=== PATIENT | female | born 1975 | race Caucasian/White ===

== ENCOUNTER → 2019-09-25 | Outpatient (CLI) | payer OTHER ==
--- NOTE | 2019-09-26 07:59 | US ---
EXAMINATION TYPE: US groin RT DATE OF EXAM: 09/25/2019 COMPARISON: Targeted ultrasound of the left groin from the same date. CLINICAL HISTORY: K40 Inguinal Hernia. Soft tissue mass, r/o hernia. Sensitivity/pain bilateral groin x 3 weeks. TECHNIQUE/FINDINGS: Targeted grayscale and color imaging was performed of the right groin in the area of concern. Exam somewhat limited. Scanned area of concern. Hypoechoic area seen near vessels measurin.2 x 0.9 x 0.5 cm. Complex are a seen at area of concern measurin.4 x 1.3 x 0.5 cm. No discrete inguinal hernia is seen with the utilization of Valsalva maneuver. IMPRESSION: 1. No discrete evidence of inguinal hernia with and without Valsalva on real-time imaging. 2. Two hypoechoic lesions in the area of concern within the right superficial inguinal region. These do not have a typical appearance of lymph nodes that could represent lymph nodes. Given that these ar e indeterminate masses CT pelvis w con is recommended for further evaluation. Valsalva maneuver could be utilized on scanning to further evaluate for hernia.
--- NOTE | 2019-09-26 08:00 | US ---
EXAMINATION TYPE: US groin LT DATE OF EXAM: 09/25/2019 COMPARISON: NONE CLINICAL HISTORY: K40 Inguinal Hernia. Soft tissue mass, r/o hernia. Sensitivity/pain bilateral groin x 3 weeks. TECHNIQUE/IMPRESSION: Targeted grayscale and color ultrasound was performed in the area concern in th e left inguinal region with and without Valsalva maneuver. Exam somewhat limited. Scanned area of concern. No obvious abnormalities seen at this time. No cystic or solid mass. No sono graphic evidence of hernia on the examination. IMPRESSION: No sonographic evidence of hernia during the examination.
== END | disposition home or self-care (01) ==
LOC: RADUSMAIN 17:53
PROVIDERS: ATTEND Obstetrics & Gynecology Obstetrics
DX: K46.9 Unspecified abdominal hernia without obstruction or gangrene (principal); M79.89 Other specified soft tissue disorders

== ENCOUNTER 2019-10-04 09:46 | Emergency (ER) | payer OTHER ==
[2019-10-04 10:06] VITALS: RESP 18
[2019-10-04 11:44] LABS: Appearance,Urine Clear (Clear); Bilirubin,Urine Negative (Negative); Blood,Urine Negative (Negative); Color,Urine Yellow; Glucose,Urine (UA) Negative (Negative); Ketones,Urine Negative (Negative); Leukocyte Esterase,Urine Negative (Negative); Nitrite,Urine Negative (Negative); Protein,Urine Negative (Negative); Specific Gravity,Urine 1.006 (1.001-1.035); Urobilinogen,Urine <2.0 mg/dL (<2.0)
[2019-10-04 11:46] LABS: Basophils % (A) 1 %; Eosinophils # (A) 0.2 k/uL (0-0.7); Eosinophils % (A) 4 %; HCT 38.9 % (34.0-46.0); HGB 12.3 gm/dL (11.4-16.0); Lymphocytes # (A) 1.1 k/uL (1.0-4.8); Lymphocytes % (A) 22 %; MCH 29.4 pg (25.0-35.0); MCHC 31.8 g/dL (31.0-37.0); MCV 92.4 fL (80.0-100.0); Mean Platelet Volume 6.6; Monocytes # (A) 0.4 k/uL (0-1.0); Monocytes % (A) 7 %; Neutrophils # (A) 3.2 k/uL (1.3-7.7); Neutrophils % (A) 63 %; Platelet Count 250 k/uL (150-450); RBC 4.21 m/uL (3.80-5.40); RDW 12.1 % (11.5-15.5); WBC 5.1 k/uL (3.8-10.6)
--- NOTE | 2019-10-04 12:02 | ED ---
Abdominal Pain HPI - General Chief Complaint: Abdominal Pain Stated Complaint: mass in abdomen/calf numbness Time Seen by Provider: 10/04/19 10:08 Source: patient Mode of arrival: ambulatory Limitations: no limitations - History of Present Illness Initial Comments: Patient is 44-year-old female with history of endometriosis presenting to emergency Department with chief complaint of abdominal mass. Patient reports she has noticed an abdominal mass in the right inguinal region that was examined by her web operations manager. She states an abdominal ultrasound was ordered and it showed an atypical mass in the patient was given a prescription for a CT of abdo men and pelvis. She states that is taking forever for her to obtain a CT. Patient reports over the 2 days the mass is increased in size in the right inguinal region. She reports it "feels off" especially when she is walking. Patient also reports she has noticed some numbness along the posterior aspect of the left lower extremity and occasional on the right lower extremity. Although, patient is not currently not experiencing these symptoms. Patient reports the symptoms have been ongoing for the past several months. Patient denies any abdominal pain, nausea vomiting or diarrhea. Patient denies any urinary or vaginal symptoms. Patient denies any night sweats fevers or chills. Patient denies recent unexplained weight loss. - Related Data Allergies Allergy/AdvReac Type Severity Reaction Status Date / Time peanut Allergy Anaphylaxis Verified 10/04/19 10:01 Review of Systems ROS Statement: Those systems with pertinent positive or pertinent negative responses have been documented in the HPI. ROS Other: All systems not noted in ROS Statement are negative. Past Medical History Past Medical History: No Reported History Additional Past Medical History / Comment(s): endometriosis History of Any Multi-Drug Resistant Organisms: None Reported Past Surgical History: Breast Surgery, Section Additional Past Surgical History / Comment(s): c section x 3 Past Psychological History: No Psychological Hx Reported Smoking Status: Former smoker Past Alcohol Use History: Rare Past Drug Use History: None Reported General Exam Limitations: no limitations General appearance: alert, in no apparent distress Head exam: Present: atraumatic, normocephalic, normal inspection Eye exam: Present: normal appearance Pupils: Present: normal accommodation ENT exam: Present: normal exam, mucous membranes moist Neck exam: Present: normal inspection, full ROM. Absent: lymphadenopathy Respiratory exam: Present: normal lung sounds bilaterally Cardiovascular Exam: Present: regular rate, normal rhythm, normal heart sounds GI/Abdominal exam: Present: soft, other (Right inguinal lymph nodes. No verbal mass measuring approximately). Absent: distended, tenderness Extremities exam: Present: normal inspection, full ROM Back exam: Present: normal inspection, full ROM. Absent: CVA tenderness (R), CVA tenderness (L) Course Vital Signs 10/04/19 10/04/19 10:01 13:15 Temperature 98 F 98.4 F Pulse Rate 72 65 Respiratory 18 18 Rate Blood Pressure 119/59 105/64 O2 Sat by Pulse 99 98 Oximetry Medical Decision Making - Medical Decision Making Patient is a 44-year-old female with history of endometriosis presenting to emergency Department with a chief complaint of abdominal mass. Patient recently had an abdominal ultrasound on the angle region which is showing enlarged writing on a lymph nodes and another atypical mass in the region as well. Patient states that she was not able to have a CT obtain a time and that the mass in the right inguinal region is "sliding down". Physical examination is in dicative of right inguinal lymph nodes with a soft tissue palpable mass that does not appear to be a hernia. Patient is not having any other symptoms. CT of the abdomen showing inguinal lymph nodes on the right side. Ovarian cyst is also noted on the left side. Patient advised to follow back with primary care. Strict return parameters were thoroughly discussed the patient was understanding and agreeable. Case discussed with physician. - Lab Data Result diagrams: 10/04/19 10:30 10/04/19 10:30 Lab Results 10/04/19 10/04/19 10/04/19 Range/Units 10:30 10:30 10:30 WBC 5.1 (3.8-10.6) k/uL RBC 4.21 (3.80-5.40) m/uL Hgb 12.3 (11.4-16.0) gm/dL Hct 38.9 (34.0-46.0) % MCV 92.4 (80.0-100.0) fL MCH 29.4 (25.0-35.0) pg MCHC 31.8 (31.0-37.0) g/dL RDW 12.1 (11.5-15.5) % Plt Count 250 (150-450) k/uL Neutrophils % 63 % Lymphocytes % 22 % Monocytes % 7 % Eosinophils % 4 % Basophils % 1 % Neutrophils # 3.2 (1.3-7.7) k/uL Lymphocytes # 1.1 (1.0-4.8) k/uL Monocytes # 0.4 (0-1.0) k/uL Eosinophils # 0.2 (0-0.7) k/uL Basophils # 0.0 (0-0.2) k/uL Sodium 141 (137-145) mmol/L Potassium 4.0 (3.5-5.1) mmol/L Chloride 109 H (98-107) mmol/L Carbon Dioxide 25 (22-30) mmol/L Anion Gap 7 mmol/L BUN 9 (7-17) mg/dL Creatinine 0.82 (0.52-1.04) mg/dL Est GFR (CKD-EPI)AfAm >90 (>60 ml/min/1.73 sqM) Est GFR (CKD-EPI)NonAf 87 (>60 ml/min/1.73 sqM) Glucose 80 (74-99) mg/dL Calcium 8.8 (8.4-10.2) mg/dL Total Bilirubin 0.3 (0.2-1.3) mg/dL AST 21 (14-36) U/L ALT 18 (9-52) U/L Alkaline Phosphatase 48 (38-126) U/L Total Protein 6.5 (6.3-8.2) g/dL Albumin 3.8 (3.5-5.0) g/dL Urine Color Urine Appearance (Clear) Urine pH (5.0-8.0) Ur Specific [place] (1.001-1.035) Urine Protein (Negative) Urine Glucose (UA) (Negative) Urine Ketones (Negative) Urine Blood (Negative) Urine Nitrite (Negative) Urine Bilirubin (Negative) Urine Urobilinogen (<2.0) mg/dL Ur Leukocyte Esterase (Negative) Urine HCG, Qual Not Detected (Not Detectd) 10/04/19 Range/Units 10:30 WBC (3.8-10.6) k/uL RBC (3.80-5.40) m/uL Hgb (11.4-16.0) gm/dL Hct (34.0-46.0) % MCV (80.0-100.0) fL MCH (25.0-35.0) pg MCHC (31.0-37.0) g/dL RDW (11.5-15.5) % Plt Count (150-450) k/uL Neutrophils % % Lymphocytes % % Monocytes % % Eosinophils % % Basophils % % Neutrophils # (1.3-7.7) k/uL Lymphocytes # (1.0-4.8) k/uL Monocytes # (0-1.0) k/uL Eosinophils # (0-0.7) k/uL Basophils # (0-0.2) k/uL Sodium (137-145) mmol/L Potassium (3.5-5.1) mmol/L Chloride (98-107) mmol/L Carbon Dioxide (22-30) mmol/L Anion Gap mmol/L BUN (7-17) mg/dL Creatinine (0.52-1.04) mg/dL Est GFR (CKD-EPI)AfAm (>60 ml/min/1.73 sqM) Est GFR (CKD-EPI)NonAf (>60 ml/min/1.73 sqM) Glucose (74-99) mg/dL Calcium (8.4-10.2) mg/dL Total Bilirubin (0.2-1.3) mg/dL AST (14-36) U/L ALT (9-52) U/L Alkaline Phosphatase (38-126) U/L Total Protein (6.3-8.2) g/dL Albumin (3.5-5.0) g/dL Urine Color Yellow Urine Appearance Clear (Clear) Urine pH 6.0 (5.0-8.0) Ur Specific [place] 1.006 (1.001-1.035) Urine Protein Negative (Negative) Urine Glucose (UA) Negative (Negative) Urine Ketones Negative (Negative) Urine Blood Negative (Negative) Urine Nitrite Negative (Negative) Urine Bilirubin Negative (Negative) Urine Urobilinogen <2.0 (<2.0) mg/dL Ur Leukocyte Esterase Negative (Negative) Urine HCG, Qual (Not Detectd) Disposition Clinical Impression: Ovarian cyst, Lymph nodes enlarged Disposition: HOME SELF-CARE Condition: Stable Instructions (If sedation given, give patient instructions): Lymphadenopathy (ED) Additional Instructions: Please follow with her primary care. Please return to emergency department if symptoms worsen. Is patient prescribed a controlled substance at d/c from ED?: No Referrals: Kashif Vaughn MD [Primary Care Provider] - 1-2 days Time of Disposition: 12:56
[2019-10-04 12:22] LABS: ALT 18 U/L (9-52); AST 21 U/L (14-36); African American GFR (CKD) >90 (>60 ml/min/1.73 sqM); Albumin 3.8 g/dL (3.5-5.0); Alkaline Phosphatase 48 U/L (38-126); Anion Gap 7 mmol/L; Blood Urea Nitrogen 9 mg/dL (7-17); Calcium 8.8 mg/dL (8.4-10.2); Carbon Dioxide 25 mmol/L (22-30); Chloride 109 mmol/L (98-107); Glucose 80 mg/dL (74-99); Sodium 141 mmol/L (137-145); Total Bilirubin 0.3 mg/dL (0.2-1.3); Total Protein 6.5 g/dL (6.3-8.2)
--- NOTE | 2019-10-04 12:49 | CT ---
EXAMINATION TYPE: CT abdomen pelvis w con DATE OF EXAM: 10/04/2019 COMPARISON: None HISTORY: Right inguinal mass CT DLP: 513.2 mGycm CONTRAST: CT scan of the abdomen and pelvis is performed without Oral Contrast and with IV Contrast, patient in jected with 100 mL of Isovue 300. FINDINGS: LUNG BASES-: No visible nodule. No infiltrate. LIVER/GB: No calcified gallstones. No space occupying hepatic lesion. Biliary tree is of normal ca liber. PANCREAS: No inflammation. No distinct mass. SPLEEN: No splenic enlargement. No lesion seen. ADRENALS: No nodule. No thickening. KIDNEYS/BLADDER: No hydronephrosis. No nephrolithiasis. No distinct renal mass. Urinary bladder g rossly unremarkable. BOWEL: Normal appendix. Normal bowel caliber. No inflammation. GENITAL ORGANS: Prominent vasculature surrounding the uterus may reflect periuterine varices. Left o varian cyst measuring 1.3 cm. LYMPH NODES: No greater than 1cm abdominal or pelvic lymph nodes are appreciated. AORTA: No significant abnormality. OSSEOUS STRUCTURES: No significant abnormality is seen. OTHER: 2 small right inguinal lymph nodes identified measuring up to 7 mm. IMPRESSION: 1. Prominent vasculature surrounding the uterus may reflect periuterine varices. Left ovarian cyst m easuring 1.3 cm. 2. 2 small right inguinal lymph nodes identified measuring up to 7 mm.
[2019-10-04 13:15] VITALS: BP 105/64; PULSE 65; TEMP 98.4
== END 2019-10-04 13:15 | disposition home or self-care (01) ==
LOC: EC 09:46
DX: N83.202 Unspecified ovarian cyst, left side (principal); R59.0 Localized enlarged lymph nodes; Z87.891 Personal history of nicotine dependence; Z91.010 Allergy to peanuts; Z87.42 Personal history of other diseases of the female genital tract
CPT/HCPCS: 36415; 80053; 85025; 81003; 81025; 74177; 99284; Q9967

== ENCOUNTER 2020-07-09 10:42 | Emergency (ER) | payer OTHER ==
[2020-07-09 10:48] VITALS: RESP 18
[2020-07-09] MEDS ORDERED: SODIUM CHLORIDE 0.9% 1,000 ML IV ONE (11:15)
--- NOTE | 2020-07-09 11:23 | ED ---
General Adult HPI - General Chief complaint: Neuro Symptoms/Deficit Stated complaint: Numbness Time Seen by Provider: 07/09/20 10:45 Source: patient, RN notes reviewed, old records reviewed Mode of arrival: ambulatory Limitations: no limitations - History of Present Illness Initial comments: This is a 45-year-old female presents emergency department stating that for at least 2 weeks now she has had tightness on both sides of her face and the tingling sensation. Patient also complains of tingling in both arms and tightness in both arms. Patient also complains of tingling in both legs below the knee and tightness in both legs. Patient states she's not weaker she is not known she can feel everything normally. Patient states she also has experienced visual change but she states it's not blurry it's not double vision she just feels like she is not seeing things away she used to. Patient denies any fever chills per patient denies any headache. Patient denies any focal deficit. Patient denies any chest pain palpitations difficulty breathing shortness of breath. Patient denies abdominal pain. Patient states she has a very poor diet eats a lot of coming appears. 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 Patient denies any weight loss or weight gain - Related Data Allergies Allergy/AdvReac Type Severity Reaction Status Date / Time peanut Allergy Anaphylaxis Verified 07/09/20 10:43 Review of Systems ROS Statement: Those systems with pertinent positive or pertinent negative responses have been documented in the HPI. ROS Other: All systems not noted in ROS Statement are negative. Past Medical History Past Medical History: No Reported History Additional Past Medical History / Comment(s): endometriosis History of Any Multi-Drug Resistant Organisms: None Reported Past Surgical History: Breast Surgery, Section Additional Past Surgical History / Comment(s): c section x 3 Past Psychological History: No Psychological Hx Reported Smoking Status: Never smoker Past Alcohol Use History: Rare Past Drug Use History: None Reported General Exam - General Exam Comments Initial Comments: GENERAL: Patient is well-developed and well-nourished. Patient is nontoxic and well- hydrated and is in no acute distress. ENT: Neck is soft and supple. No significant lymphadenopathy is noted. Oropharynx is clear. Moist mucous membranes. Neck has full range of motion without eliciting any pain. EYES: The sclera were anicteric and conjunctiva were pink and moist. Extraocular movements were intact and pupils were equal round and reactive to light. Eyelids were unremarkable. PULMONARY: Unlabored respirations. Good breath sounds bilaterally. No audible rales rhonchi or wheezing was noted. CARDIOVASCULAR: There is a regular rate and rhythm without any murmurs gallops or rubs. ABDOMEN: Soft and nontender with normal bowel sounds. No palpable organomegaly was noted. There is no palpable pulsatile mass. SKIN: Skin is clear with no lesions or rashes and otherwise unremarkable. NEUROLOGIC: Patient is alert and oriented x3. Cranial nerves II through XII are grossly intact. Motor and sensory are also intact. Normal speech, volume and content. Symmetrical smile. MUSCULOSKELETAL: Normal extremities with adequate strength and full range of motion. No lower extremity swelling or edema. No calf tenderness. LYMPHATICS: No significant lymphadenopathy is noted PSYCHIATRIC: Normal psychiatric evaluation. Limitations: no limitations Course Vital Signs 07/09/20 07/09/20 07/09/20 10:43 11:30 11:32 Temperature 98.2 F Pulse Rate 63 Pulse Rate [ 57 L 53 L Pulse Oximetery ] Respiratory 18 18 18 Rate Blood Pressure 90/62 Blood Pressure 105/71 [Left Arm Sitting] Blood Pressure [Left Arm Standing] Blood Pressure 86/56 [Left Arm Supine] O2 Sat by Pulse 97 Oximetry 07/09/20 07/09/20 11:34 12:14 Temperature Pulse Rate 50 L Pulse Rate [ 57 L Pulse Oximetery ] Respiratory 18 18 Rate Blood Pressure 96/55 Blood Pressure [Left Arm Sitting] Blood Pressure 102/69 [Left Arm Standing] Blood Pressure [Left Arm Supine] O2 Sat by Pulse 98 Oximetry Medical Decision Making - Medical Decision Making Patient's blood sugar was little bit low but will repeat in the room it was 108. Patient did drink some orange juice and had a sandwich. Patient had no objective findings and told me that her vision was blurry or she wasn't having double vision but she didn't feel like it was normal. Patient stated she would follow-up with Dr. Dr. Vaughn and possibly an stogy maker. - Lab Data Result diagrams: 07/09/20 11:20 07/09/20 11:20 Lab Results 07/09/20 07/09/20 07/09/20 Range/Units 11:20 11:20 12:25 WBC 5.1 (3.8-10.6) k/uL RBC 4.45 (3.80-5.40) m/uL Hgb 13.1 (11.4-16.0) gm/dL Hct 40.2 (34.0-46.0) % MCV 90.4 (80.0-100.0) fL MCH 29.4 (25.0-35.0) pg MCHC 32.6 (31.0-37.0) g/dL RDW 12.4 (11.5-15.5) % Plt Count 282 (150-450) k/uL Neutrophils % 65 % Lymphocytes % 24 % Monocytes % 7 % Eosinophils % 3 % Basophils % 1 % Neutrophils # 3.3 (1.3-7.7) k/uL Lymphocytes # 1.2 (1.0-4.8) k/uL Monocytes # 0.3 (0-1.0) k/uL Eosinophils # 0.1 (0-0.7) k/uL Basophils # 0.0 (0-0.2) k/uL Sodium 139 (137-145) mmol/L Potassium 3.9 (3.5-5.1) mmol/L Chloride 106 (98-107) mmol/L Carbon Dioxide 26 (22-30) mmol/L Anion Gap 7 mmol/L BUN 9 (7-17) mg/dL Creatinine 0.83 (0.52-1.04) mg/dL Est GFR (CKD-EPI)AfAm >90 (>60 ml/min/1.73 sqM) Est GFR (CKD-EPI)NonAf 86 (>60 ml/min/1.73 sqM) Glucose 62 L (74-99) mg/dL POC Glucose (mg/dL) 108 H (75-99) mg/dL POC Glu Cloud Engineer ID Carrie Kumar Calcium 9.6 (8.4-10.2) mg/dL Magnesium 2.1 (1.6-2.3) mg/dL Total Bilirubin 0.4 (0.2-1.3) mg/dL AST 21 (14-36) U/L ALT 13 (4-34) U/L Alkaline Phosphatase 47 (38-126) U/L Creatine Kinase 76 (30-135) U/L Total Protein 7.2 (6.3-8.2) g/dL Albumin 4.6 (3.5-5.0) g/dL Disposition Clinical Impression: Paresthesias Disposition: HOME SELF-CARE Condition: Good Instructions (If sedation given, give patient instructions): Paresthesia (ED) Is patient prescribed a controlled substance at d/c from ED?: No Referrals: None,Stated [REFERRING] - 1-2 days Time of Disposition: 12:40
[2020-07-09 11:52] LABS: Basophils % (A) 1 %; Eosinophils # (A) 0.1 k/uL (0-0.7); Eosinophils % (A) 3 %; HCT 40.2 % (34.0-46.0); HGB 13.1 gm/dL (11.4-16.0); Lymphocytes # (A) 1.2 k/uL (1.0-4.8); Lymphocytes % (A) 24 %; MCH 29.4 pg (25.0-35.0); MCHC 32.6 g/dL (31.0-37.0); MCV 90.4 fL (80.0-100.0); Mean Platelet Volume 7.3; Monocytes # (A) 0.3 k/uL (0-1.0); Monocytes % (A) 7 %; Neutrophils # (A) 3.3 k/uL (1.3-7.7); Neutrophils % (A) 65 %; Platelet Count 282 k/uL (150-450); RBC 4.45 m/uL (3.80-5.40); RDW 12.4 % (11.5-15.5); WBC 5.1 k/uL (3.8-10.6)
[2020-07-09 11:59] LABS: ALT 13 U/L (4-34); AST 21 U/L (14-36); African American GFR (CKD) >90 (>60 ml/min/1.73 sqM); Albumin 4.6 g/dL (3.5-5.0); Alkaline Phosphatase 47 U/L (38-126); Anion Gap 7 mmol/L; Blood Urea Nitrogen 9 mg/dL (7-17); Calcium 9.6 mg/dL (8.4-10.2); Carbon Dioxide 26 mmol/L (22-30); Chloride 106 mmol/L (98-107); Creatine Kinase 76 U/L (30-135); Glucose 62 mg/dL (74-99); Magnesium 2.1 mg/dL (1.6-2.3); Non-African American GFR(CKD) 86 (>60 ml/min/1.73 sqM); Potassium 3.9 mmol/L (3.5-5.1); Sodium 139 mmol/L (137-145); Total Bilirubin 0.4 mg/dL (0.2-1.3); Total Protein 7.2 g/dL (6.3-8.2)
[2020-07-09 12:27] LABS: Glucose,Whole Blood 108 mg/dL (75-99)
[2020-07-09 13:12] VITALS: BP 94/67; PULSE 66; TEMP 97.9
== END 2020-07-09 13:11 | disposition home or self-care (01) ==
LOC: EC 10:42
DX: R20.2 Paresthesia of skin (principal); Z91.010 Allergy to peanuts; R20.0 Anesthesia of skin
CPT/HCPCS: 36415; 80053; 82550; 83735; 85025; 96360; 99284

== ENCOUNTER → 2021-12-08 | Outpatient (CLI) | payer OTHER ==
--- NOTE | 2021-12-08 12:01 | MM ---
Reason for exam: clinical finding. Baseline mammogram. History: Family history of breast cancer in maternal grandmother. Implant Removal of both breasts. Took hormonal contraceptives for 5 years. Physical Findings: Nurse Summary: 1cm nodule in the left breast at 1-2 o'clock (nurse henry). [facility] Diagnostic Mammo w CAD SKYLER Bilateral CC and MLO view(s) were taken. Spot compression CC and spot compression MLO view(s) were taken of the left breast. The breast tissue is extremely dense which could obscure a lesion on mammography. Finding: There is a spiculated oval, irregular mass located 3 cm from the nipple in the 7 o'clock position. There is no discrete abnormality including area of concern left upper outer quadrant palpable. These results were verbally communicated with the patient and result sheet given to the patient on 12/08/21. ASSESSMENT: Incomplete: need additional imaging evaluation, BI-RAD 0 RECOMMENDATION: Ultrasound of the left breast.
--- NOTE | 2021-12-08 12:03 | USB ---
Reason for exam: additional evaluation requested from abnormal screening. History: Family history of breast cancer in maternal grandmother. Implant Removal of both breasts. Took hormonal contraceptives for 5 years. US Breast Limited LT Left limited breast ultrasound including focal area of concern, retroareolar and axilla demonstrates a 0.3 x 0.6 x 0.4cm cystic lesion at 1 o'clock and a 0.5 x 0.6 x 0.3cm cystic lesion at 2 o'clock. These results were verbally communicated with the patient and result sheet given to the patient on 12/08/21. ASSESSMENT: Benign, BI-RAD 2 RECOMMENDATION: Routine screening mammogram of both breasts in 1 year. Manage on a clinical basis with regard to palpable.
== END ==
LOC: RADMAMWWP 10:18
PROVIDERS: ATTEND Family Medicine
DX: N64.4 Mastodynia (principal)
CPT/HCPCS: 77066

== ENCOUNTER 2023-06-20 11:57 | Emergency (ER) | payer OTHER ==
[2023-06-20 13:18] VITALS: TEMP 98.3
[2023-06-20 13:34] LABS: Appearance,Urine Clear (Clear); Bilirubin,Urine Negative (Negative); Blood,Urine Negative (Negative); Color,Urine Colorless; Glucose,Urine (UA) Negative (Negative); Ketones,Urine Negative (Negative); Leukocyte Esterase,Urine Negative (Negative); Nitrite,Urine Negative (Negative); PH, Urine 7.5 (5.0-8.0); Protein,Urine Negative (Negative); Specific Gravity,Urine 1.004 (1.001-1.035); Urobilinogen,Urine <2.0 mg/dL (<2.0)
[2023-06-20] MEDS ORDERED: SODIUM CHLORIDE 0.9% 1,000 ML IV STA (14:54)
--- NOTE | 2023-06-20 14:59 | ED ---
General Adult HPI - General Chief complaint: Abdominal Pain Stated complaint: abd pain Time Seen by Provider: 06/20/23 14:09 Source: patient, RN notes reviewed Mode of arrival: ambulatory Limitations: no limitations - History of Present Illness Initial comments: 48-year-old female resents to the emergency department chief complaint of abdominal bloating that has been going on for the past month but she noticed worse on Monday. She reports associated nausea without vomiting. Last bowel movement was this morning. She reports that she is able to pass gas without issue. She also reports associated leg tingling without numbness or pain. She reports no trauma or injury. Denies fever, chills. - Related Data Allergies Allergy/AdvReac Type Severity Reaction Status Date / Time peanut Allergy Anaphylaxis Verified 06/20/23 13:18 Review of Systems ROS Statement: Those systems with pertinent positive or pertinent negative responses have been documented in the HPI. ROS Other: All systems not noted in ROS Statement are negative. Past Medical History Past Medical History: No Reported History Additional Past Medical History / Comment(s): endometriosis History of Any Multi-Drug Resistant Organisms: None Reported Past Surgical History: Breast Surgery, Section Additional Past Surgical History / Comment(s): c section x 3 Past Psychological History: No Psychological Hx Reported Smoking Status: Never smoker Past Alcohol Use History: Rare Past Drug Use History: None Reported General Exam Limitations: no limitations General appearance: alert, in no apparent distress Head exam: Present: atraumatic, normocephalic, normal inspection Eye exam: Present: normal appearance ENT exam: Present: normal exam, mucous membranes moist Neck exam: Present: normal inspection. Absent: tenderness, meningismus, lymphadenopathy Respiratory exam: Present: normal lung sounds bilaterally. Absent: respiratory distress, wheezes, rales, rhonchi, stridor Cardiovascular Exam: Present: regular rate, normal rhythm, normal heart sounds. Absent: systolic murmur, diastolic murmur, rubs, gallop, clicks GI/Abdominal exam: Present: soft, distended, hyperactive bowel sounds Extremities exam: Present: normal inspection, full ROM, normal capillary refill, other (DP and PT pulses 2+). Absent: tenderness, pedal edema, joint swelling, calf tenderness Back exam: Present: normal inspection Neurological exam: Present: alert, oriented X3 Psychiatric exam: Present: normal affect, normal mood Skin exam: Present: warm, dry, intact, normal color. Absent: rash Course Vital Signs 06/20/23 06/20/23 13:15 16:00 Temperature 98.3 F Pulse Rate 72 65 Respiratory 18 17 Rate Blood Pressure 131/76 112/55 O2 Sat by Pulse 100 99 Oximetry Medical Decision Making - Medical Decision Making Was pt. sent in by a medical professional or institution (, PTA, LOAD MIXER, urgent care, hospital, or retirement...) When possible be specific @ -No Did you speak to anyone other than the patient for history (EMS, parent, family, police, friend...)? What history was obtained from this source @ -No Did you review nursing and triage notes (agree or disagree)? Why? @ -I reviewed and agree with nursing and triage notes Were old charts reviewed (outside hosp., previous admission, EMS record, old EKG, old radiological studies, urgent care reports/EKG's, retirement records)? Report findings @ -No old charts were reviewed Differential Diagnosis (chest pain, altered mental status, abdominal pain women, abdominal pain men, vaginal bleeding, weakness, fever, dyspnea, syncope, headache, dizziness, GI bleed, back pain, seizure, CVA, palpatations, mental health, musculoskeletal)? @ -Differential Abdominal Pain Women: Appendicitis, Cholecystitis, diverticulosis, ischemic bowel, pancreatitis, hepatitis, UTI, gastroenteritis, AAA, incarcerated hernia, bowel obstruction, constipation, inflammatory bowel, hepatitis, peptic ulcer disease, splenic infar ction, perforated viscus, vulvitis, ovarian torsion, PID, kidney stone, placenta abruption, this is not meant to be an all-inclusive list EKG interpreted by me (3pts min.). @ -None X-rays interpreted by me (1pt min.). @ -KUB showed nonspecific bowel gas pattern CT interpreted by me (1pt min.). @ -None done U/S interpreted by me (1pt. min.). @ -None done What testing was considered but not performed or refused? (CT, X-rays, U/S, labs)? Why? @ -None What meds were considered but not given or refused? Why? @ -None Did you discuss the management of the patient with other professionals (professionals i.e. , PAT, LOAD MIXER, lab, RT, psych nurse, social work assistant, human services assistant, teacher, parking control officer, shoe caser)? Give summary @ -No Was smoking cessation discussed for >3mins.? @ -No Was critical care preformed (if so, how long)? @ -No Were there social determinants of health that impacted care today? How? (Homelessness, low income, unemployed, alcoholism, drug addiction, transportation, low edu. Level, literacy, decrease access to med. care, detention, rehab)? @ -No Was there de-escalation of care discussed even if they declined (Discuss DNR or withdrawal of care, Hospice)? DNR status @ -No What co-morbidities impacted this encounter? (DM, HTN, Smoking, COPD, CAD, Ca ncer, CVA, ARF, Chemo, Hep., AIDS, mental health diagnosis, sleep apnea, morbid obesity)? @ -None Was patient admitted / discharged? Hospital course, mention meds given and route, prescriptions, significant lab abnormalities, going to OR and other pertinent info. @ -Discharged. Patient presented to emergency department chief complaint of a bdominal bloating over the past 2-3 months that began to worsen on Monday. Patient is having normal bowel movements and passing gas. Labs obtained which were within normal limits. UA showed no evidence of infection. Lactic acid 0.8, CRP negative. Abdomen is soft nontender. Lower extremities NVI. Patient advised to follow-up with her primary care provider who she has not seen recently. Return precautions discussed. Patient stable at time of discharge. Undiagnosed new problem with uncertain prognosis? @ -No Drug Therapy requiring intensive monitoring for toxicity (Heparin, Nitro, Insulin, Cardizem)? @ -No Were any procedures done? @ -No Diagnosis/symptom? @ -Abdominal bloating Acute, or Chronic, or Acute on Chronic? @ -Acute Uncomplicated (without systemic symptoms) or Complicated (systemic symptoms)? @ -uncomplicated Side effects of treatment? @ -No Exacerbation, Progression, or Severe Exacerbation? @ -No Poses a threat to life or bodily function? How? (Chest pain, [place], [place], pneumonia, PE, COPD, DKA, ARF, appy, cholecystitis, CVA, Diverticulitis, Homicidal, Suicidal, threat to staff... and all critical care pts) @ -No - Lab Data Result diagrams: 06/20/23 15:10 06/20/23 15:10 Lab Results 06/20/23 06/20/23 06/20/23 Range/Units 13:20 13:20 15:10 WBC 5.6 (3.8-10.6) k/uL RBC 4.35 (3.80-5.40) m/uL Hgb 13.3 (11.4-16.0) gm/dL Hct 39.9 (34.0-46.0) % MCV 91.8 (80.0-100.0) fL MCH 30.5 (25.0-35.0) pg MCHC 33.3 (31.0-37.0) g/dL RDW 13.0 (11.5-15.5) % Plt Count 221 (150-450) k/uL MPV 7.5 Neutrophils % 57 % Lymphocytes % 27 % Monocytes % 8 % Eosinophils % 4 % Basophils % 0 % Neutrophils # 3.2 (1.3-7.7) k/uL Lymphocytes # 1.5 (1.0-4.8) k/uL Monocytes # 0.5 (0-1.0) k/uL Eosinophils # 0.2 (0-0.7) k/uL Basophils # 0.0 (0-0.2) k/uL Sodium (137-145) mmol/L Potassium (3.5-5.1) mmol/L Chloride (98-107) mmol/L Carbon Dioxide (22-30) mmol/L Anion Gap mmol/L BUN (7-17) mg/dL Creatinine (0.52-1.04) mg/dL Est GFR (CKD-EPI)AfAm (>60 ml/min/1.73 sqM) Est GFR (CKD-EPI)NonAf (>60 ml/min/1.73 sqM) Glucose (74-99) mg/dL Plasma Lactic Acid Willy (0.7-2.0) mmol/L Calcium (8.4-10.2) mg/dL Total Bilirubin (0.2-1.3) mg/dL AST (14-36) U/L ALT (4-34) U/L Alkaline Phosphatase (38-126) U/L C-Reactive Protein (<1.0) mg/dL Total Protein (6.3-8.2) g/dL Albumin (3.5-5.0) g/dL Amylase (30-110) U/L Lipase (23-300) U/L Urine Color Colorless Urine Appearance Clear (Clear) Urine pH 7.5 (5.0-8.0) Ur Specific Hood 1.004 (1.001-1.035) Urine Protein Negative (Negative) Urine Glucose (UA) Negative (Negative) Urine Ketones Negative (Negative) Urine Blood Negative (Negative) Urine Nitrite Negative (Negative) Urine Bilirubin Negative (Negative) Urine Urobilinogen <2.0 (<2.0) mg/dL Ur Leukocyte Esterase Negative (Negative) Urine HCG, Qual Not Detected (Not Detectd) 06/20/23 06/20/23 Range/Units 15:10 15:10 WBC (3.8-10.6) k/uL RBC (3.80-5.40) m/uL Hgb (11.4-16.0) gm/dL Hct (34.0-46.0) % MCV (80.0-100.0) fL MCH (25.0-35.0) pg MCHC (31.0-37.0) g/dL RDW (11.5-15.5) % Plt Count (150-450) k/uL MPV Neutrophils % % Lymphocytes % % Monocytes % % Eosinophils % % Basophils % % Neutrophils # (1.3-7.7) k/uL Lymphocytes # (1.0-4.8) k/uL Monocytes # (0-1.0) k/uL Eosinophils # (0-0.7) k/uL Basophils # (0-0.2) k/uL Sodium 139 (137-145) mmol/L Potassium 4.6 (3.5-5.1) mmol/L Chloride 106 (98-107) mmol/L Carbon Dioxide 24 (22-30) mmol/L Anion Gap 9 mmol/L BUN 10 (7-17) mg/dL Creatinine 0.79 (0.52-1.04) mg/dL Est GFR (CKD-EPI)AfAm >90 (>60 ml/min/1.73 sqM) Est GFR (CKD-EPI)NonAf 90 (>60 ml/min/1.73 sqM) Glucose 80 (74-99) mg/dL Plasma Lactic Acid Willy 0.8 (0.7-2.0) mmol/L Calcium 9.4 (8.4-10.2) mg/dL Total Bilirubin 0.5 (0.2-1.3) mg/dL AST 30 (14-36) U/L ALT 24 (4-34) U/L Alkaline Phosphatase 54 (38-126) U/L C-Reactive Protein <0.5 (<1.0) mg/dL Total Protein 7.8 (6.3-8.2) g/dL Albumin 4.7 (3.5-5.0) g/dL Amylase 95 (30-110) U/L Lipase 147 (23-300) U/L Urine Color Urine Appearance (Clear) Urine pH (5.0-8.0) Ur Specific Hood (1.001-1.035) Urine Protein (Negative) Urine Glucose (UA) (Negative) Urine Ketones (Negative) Urine Blood (Negative) Urine Nitrite (Negative) Urine Bilirubin (Negative) Urine Urobilinogen (<2.0) mg/dL Ur Leukocyte Esterase (Negative) Urine HCG, Qual (Not Detectd) Disposition Clinical Impression: Abdominal bloating Disposition: HOME SELF-CARE Condition: Stable Additional Instructions: Follow up with your primary care provider. Return to the emergency department for new or worsening symptoms as we discussed. Is patient prescribed a controlled substance at d/c from ED?: No Referrals: Kashif Vaughn MD [Primary Care Provider] - 1-2 days Tammie Hargrove MD [STAFF PHYSICIAN] - 1-2 days Forms: Work/School Release Time of Disposition: 16:24
[2023-06-20 15:38] LABS: Basophils % (A) 0 %; Eosinophils # (A) 0.2 k/uL (0-0.7); Eosinophils % (A) 4 %; HCT 39.9 % (34.0-46.0); HGB 13.3 gm/dL (11.4-16.0); Lymphocytes # (A) 1.5 k/uL (1.0-4.8); Lymphocytes % (A) 27 %; MCH 30.5 pg (25.0-35.0); MCHC 33.3 g/dL (31.0-37.0); MCV 91.8 fL (80.0-100.0); Mean Platelet Volume 7.5; Monocytes # (A) 0.5 k/uL (0-1.0); Monocytes % (A) 8 %; Neutrophils # (A) 3.2 k/uL (1.3-7.7); Neutrophils % (A) 57 %; Platelet Count 221 k/uL (150-450); RBC 4.35 m/uL (3.80-5.40); WBC 5.6 k/uL (3.8-10.6)
--- NOTE | 2023-06-20 15:47 | XR ---
EXAMINATION TYPE: XR KUB DATE OF EXAM: 06/20/2023 Comparison: None Clinical History: 48-year-old female abdominal pain Findings: Lung bases are clear. No evidence for free intraperitoneal air. Small air-fluid levels in both the small bowel and colon. There is moderate stool in the left side of the colon with air extending distally to the rectum. No suspicious calcifications are seen. Impression: Nonobstructive bowel gas pattern but with a number of small air-fluid levels scattered throughout the small bowel and right side of the colon. Consider generalized ileus or enteritis. Moderate solid sto ol in the left side of the colon.
[2023-06-20 16:05] LABS: ALT 24 U/L (4-34); African American GFR (CKD) >90 (>60 ml/min/1.73 sqM); Albumin 4.7 g/dL (3.5-5.0); Amylase 95 U/L (30-110); Anion Gap 9 mmol/L; Blood Urea Nitrogen 10 mg/dL (7-17); Calcium 9.4 mg/dL (8.4-10.2); Carbon Dioxide 24 mmol/L (22-30); Chloride 106 mmol/L (98-107); Glucose 80 mg/dL (74-99); Lipase 147 U/L (23-300); Non-African American GFR(CKD) 90 (>60 ml/min/1.73 sqM); Sodium 139 mmol/L (137-145); Total Bilirubin 0.5 mg/dL (0.2-1.3); Total Protein 7.8 g/dL (6.3-8.2)
[2023-06-20 16:08] LABS: AST 30 U/L (14-36); Alkaline Phosphatase 54 U/L (38-126); C Reactive Protein <0.5 mg/dL (<1.0); Potassium 4.6 mmol/L (3.5-5.1)
[2023-06-20 16:48] VITALS: BP 112/55; PULSE 65; RESP 17
== END 2023-06-20 16:59 | disposition home or self-care (01) ==
LOC: EC 11:57
DX: R14.0 Abdominal distension (gaseous) (principal); Z91.018 Allergy to other foods
CPT/HCPCS: 36415; 74018; 80053; 81003; 81025; 82150; 83605; 83690; 85025; 86140; 96360; 99284

== ENCOUNTER 2023-10-12 17:57 | Emergency (ER) | payer OTHER ==
[2023-10-12 18:18] VITALS: TEMP 98.8
[2023-10-12] MEDS ORDERED: ONDANSETRON ODT 4 MG TAB PO STA (19:49)
[2023-10-12] MEDS ORDERED: BENZONATATE 100 MG CAP PO STA (19:49)
--- NOTE | 2023-10-12 20:25 | ED ---
URI HPI - General Chief Complaint: Upper Respiratory Infection Stated Complaint: Flu/Covid Symptoms Time Seen by Provider: 10/12/23 19:42 Source: patient, RN notes reviewed Mode of arrival: ambulatory Limitations: no limitations - History of Present Illness Initial Comments: Patient is a 48-year-old female presented ER with chief complaint of a cough. P atient states she had this cough for the past 3 days without improvement. Patient has been taking [id number] medications without relief. Patient states her daughter is having similar symptoms. Patient states she has had a fever of 101.2 today. Patient endorses shortness of breath with coughing and chest pain while coughing. Patient also endorses a headache and mild congestion. Patient denies any abdominal pain, urinary symptoms, constipation/diarrhea. - Related Data Previous Rx's Medication Instructions Recorded Azithromycin [Zithromax Z Pack] 0 tab PO DIRECTED #6 tab 10/12/23 Benzonatate [Tessalon Perles] 100 mg PO TID PRN #15 capsule 10/12/23 Ondansetron Odt [Zofran Odt] 4 mg PO Q8HR PRN #10 tab 10/12/23 Allergies Allergy/AdvReac Type Severity Reaction Status Date / Time peanut Allergy Anaphylaxis Verified 10/12/23 18:06 Review of Systems ROS Statement: Those systems with pertinent positive or pertinent negative responses have been documented in the HPI. ROS Other: All systems not noted in ROS Statement are negative. Past Medical History Past Medical History: No Reported History Additional Past Medical History / Comment(s): endometriosis History of Any Multi-Drug Resistant Organisms: None Reported Past Surgical History: Breast Surgery, Section Additional Past Surgical History / Comment(s): c section x 3 Past Psychological History: No Psychological Hx Reported Smoking Status: Never smoker Past Alcohol Use History: Occasional Past Drug Use History: None Reported General Exam Limitations: no limitations General appearance: alert, in no apparent distress ENT exam: Present: normal exam, mucous membranes moist, TM's normal bilaterally Respiratory exam: Present: normal lung sounds bilaterally. Absent: respiratory distress, wheezes, rales, rhonchi, stridor Cardiovascular Exam: Present: regular rate, normal rhythm, normal heart sounds. Absent: systolic murmur, diastolic murmur, rubs, gallop, clicks GI/Abdominal exam: Present: soft, normal bowel sounds. Absent: distended, tenderness, guarding, rebound, rigid Neurological exam: Present: alert, oriented X3, CN II-XII intact Psychiatric exam: Present: normal affect, normal mood Skin exam: Present: warm, dry, intact, normal color. Absent: rash Course Vital Signs 10/12/23 10/12/23 18:03 22:16 Temperature 98.8 F Pulse Rate 59 L 62 Respiratory 24 16 Rate Blood Pressure 110/69 116/78 O2 Sat by Pulse 97 98 Oximetry Medical Decision Making - Medical Decision Making Was pt. sent in by a medical professional or institution (, PA, PEELER OPERATOR, urgent care, hospital, or residential...) When possible be specific @ -No Did you speak to anyone other than the patient for history (EMS, parent, family, police, friend...)? What history was obtained from this source @ -No Did you review nursing and triage notes (agree or disagree)? Why? @ -I reviewed and agree with nursing and triage notes Were old charts reviewed (outside hosp., previous admission, EMS record, old EKG, old radiological studies, urgent care reports/EKG's, residential records)? Report findings @ -No old charts were reviewed Differential Diagnosis (chest pain, altered mental status, abdominal pain women, abdominal pain men, vaginal bleeding, weakness, fever, dyspnea, syncope, headache, dizziness, GI bleed, back pain, seizure, CVA, palpatations, mental health, musculoskeletal)? @ -Differential Fever:Pneumonia, viral URI, endocarditis, myocarditis, pericarditis, otitis, sinusitis, peritonsillar Abscess, retropharyngeal Abscess, epiglottitis, peritonitis, appendicitis, Marisa cystitis, diverticulitis, hepatitis, colitis, UTI, PID, TOA, pyelonephritis, prostatitis, epididymitis, meningitis, encephalitis, pulmonary embolism, CVA, thyroid storm, pancreatitis, adrenal crisis, cavernous sinus thrombosis, this is not meant to be an all- inclusive list. EKG interpreted by me (3pts min.). @ -None X-rays interpreted by me (1pt min.). @ -Chest x-ray shows acute cardiopulmonary process. CT interpreted by me (1pt min.). @ -None done U/S interpreted by me (1pt. min.). @ -None done What testing was considered but not performed or refused? (CT, X-rays, U/S, labs)? Why? @ -None What meds were considered but not given or refused? Why? @ -None Did you discuss the management of the patient with other professionals (professionals i.e. , PA, PEELER OPERATOR, lab, RT, psych nurse, oncology social work, manager medicare, teacher, foreign policy officer, porter sample case)? Give summary @ -No Was smoking cessation discussed for >3mins.? @ -No Was critical care preformed (if so, how long)? @ -No Were there social determinants of health that impacted care today? How? (Homelessness, low income, unemployed, alcoholism, drug addiction, transportation, low edu. Level, literacy, decrease access to med. care, penitentiary, rehab)? @ -No Was there de-escalation of care discussed even if they declined (Discuss DNR or withdrawal of care, Hospice)? DNR status @ -No What co-morbidities impacted this encounter? (DM, HTN, Smoking, COPD, CAD, Cancer, CVA, ARF, Chemo, Hep., AIDS, mental health diagnosis, sleep apnea, morbid obesity)? @ -None Was patient admitted / discharged? Hospital course, mention meds given and route, prescriptions, significant lab abnormalities, going to OR and other pertinent info. @ -Discharge. Upon examination vital signs were stable. Viral swabs obtained the ER were negative. Chest x-ray shows no acute cardiac or pulmonary process. Patient will be discharged home with a prescription for azithromycin, Tessalon Perles, Zofran. I discussed return parameters. Patient will be discharged home in stable condition with follow-up to PCP. Undiagnosed new problem with uncertain prognosis? @ -No Drug Therapy requiring intensive monitoring for toxicity (Heparin, Nitro, Insulin, Cardizem)? @ -No Were any procedures done? @ -No Diagnosis/symptom? @ -Upper respiratory tract infection Acute, or Chronic, or Acute on Chronic? @ -Acute Uncomplicated (without systemic symptoms) or Complicated (systemic symptoms)? @ -Uncomplicated Side effects of treatment? @ -No Exacerbation, Progression, or Severe Exacerbation? @ -No Poses a threat to life or bodily function? How? (Chest pain, [place], [place], pneumonia, PE, COPD, DKA, ARF, appy, cholecystitis, CVA, Diverticulitis, Homicidal, Suici taz, threat to staff... and all critical care pts) @ -No - Lab Data Lab Results 10/12/23 Range/Units 18:08 Influenza Type A (PCR) Not Detected (Not Detectd) Influenza Type B (PCR) Not Detected (Not Detectd) RSV (PCR) Not Detected (Not Detectd) SARS-CoV-2 (PCR) Not Detected (Not Detectd) - Radiology Data Radiology results: report reviewed, image reviewed Disposition Clinical Impression: Upper respiratory tract infection Disposition: HOME SELF-CARE Condition: Stable Instructions (If sedation given, give patient instructions): Upper Respiratory Infection (ED) Additional Instructions: Please return to the Emergency Department if symptoms worsen or any other concerns. Prescriptions: Benzonatate [Tessalon Perles] 100 mg PO TID PRN #15 capsule PRN Reason: Cough Azithromycin [Zithromax Z Pack] 0 tab PO DIRECTED #6 tab Ondansetron Odt [Zofran Odt] 4 mg PO Q8HR PRN #10 tab PRN Reason: Nausea Is patient prescribed a controlled substance at d/c from ED?: No Referrals: Kashif Vaughn MD [Primary Care Provider] - 1-2 days Time of Disposition: 22:37
[2023-10-12 22:22] VITALS: BP 116/78; PULSE 62; RESP 16
--- NOTE | 2023-10-12 22:25 | XR ---
EXAMINATION TYPE: XR chest 2V DATE OF EXAM: 10/12/2023 8:01 PM CLINICAL INDICATION:Female, 48 years old with history of cough; [facility] COMPARISON: 11/02/2021 TECHNIQUE: XR chest 2V Frontal and lateral views of the chest. FINDINGS: Lines/Tubes: No indwelling lines are seen. Extrinsic densities over the chest. Lungs/Pleura: Lungs are well-inflated without evidence of pleural effusion, focal consolidation, or p neumothorax. Pulmonary vascularity: Unremarkable. Heart/mediastinum: Cardiomediastinal silhouette is unremarkable. Musculoskeletal: No acute osseous pathology. Other findings: None IMPRESSION: No acute cardiopulmonary disease/process.
== END 2023-10-12 22:42 | disposition home or self-care (01) ==
LOC: EC 17:57
DX: J06.9 Acute upper respiratory infection, unspecified (principal); Z91.010 Allergy to peanuts; Z20.822 Contact with and (suspected) exposure to COVID-19
CPT/HCPCS: 71046; 87636; 99284

== ENCOUNTER 2025-02-11 07:05 | Emergency (ER) | payer OTHER ==
[2025-02-11 07:12] VITALS: RESP 18
--- NOTE | 2025-02-11 07:56 | ED ---
Chest Pain HPI - General Chief Complaint: Chest Pain Stated Complaint: chest pain Source: patient Mode of arrival: wheelchair Limitations: no limitations - History of Present Illness Initial Comments: Patient is a 49-year-old female with no past medical history presents to the ER with sharp stabbing chest pain that started yesterday while resting and laying down. Patient has been having some viral-like symptoms over the past week with congestion, runny nose. He reports the chest pain to be intermittent, gets worse with inhalation and radiate toward her back and under her arms. She said this happened while she was resting. Patient did take some Tums and naproxen with no relief of symptoms. Currently endorses a 2 out of 10 chest pain. Patient is not a smoker. Patient does take tranexamic acid as needed for heavy menstrual bleed. Currently denies fever, chills, shortness of breath, nausea, vomiting, belly pain, diarrhea, constipation. - Related Data Previous Rx's Medication Instructions Recorded Azithromycin [Zithromax Z Pack] 0 tab PO DIRECTED #6 tab 10/12/23 Benzonatate [Tessalon Perles] 100 mg PO TID PRN #15 capsule 10/12/23 Ondansetron Odt [Zofran Odt] 4 mg PO Q8HR PRN #10 tab 10/12/23 Allergies Allergy/AdvReac Type Severity Reaction Status Date / Time peanut Allergy Anaphylaxis Verified 02/11/25 07:12 Review of Systems ROS Statement: Those systems with pertinent positive or pertinent negative responses have been documented in the HPI. ROS Other: All systems not noted in ROS Statement are negative. Constitutional: Denies: fever, chills ENT: Reports: congestion. Denies: ear pain, throat pain Respiratory: Denies: cough Cardiovascular: Reports: chest pain. Denies: palpitations, dyspnea on exertion, orthopnea Gastrointestinal: Denies: abdominal pain, nausea, vomiting, diarrhea, constipation Genitourinary: Denies: urgency, dysuria Past Medical History Past Medical History: No Reported History Additional Past Medical History / Comment(s): endometriosis History of Any Multi-Drug Resistant Organisms: None Reported Past Surgical History: Breast Surgery, Section Additional Past Surgical History / Comment(s): c section x 3 Past Psychological History: No Psychological Hx Reported Smoking Status: Never smoker Past Alcohol Use History: Occasional Past Drug Use History: None Reported General Exam - General Exam Comments Initial Comments: GENERAL: This is a 49-year-old in no apparent distress at the time of examination. Pleasant and cooperative. HEENT: Head is atraumatic, normocephalic. Pupils are equal, round, and reactive to light. Sclerae anicteric. Conjunctivae are clear. RESPIRATORY: Clear to auscultation. No wheezes, rales, or rhonchi. No use of accessory muscles. Patient maintaining oxygen saturation greater than 92%. CARDIOVASCULAR: Regular rate and rhythm. S1 and S2 noted. No systolic or diastolic murmur auscultated. No JVD noted. No S3 or S4 noted. GASTROINTESTINAL: No distention noted. Abdomen soft and round. No pain or tenderness noted upon palpation. INTEGUMENTARY: No cyanosis. No jaundice. No rashes noted. No cellulitis noted. EXTREMITIES: 2+ peripheral pulses. No evidence of peripheral edema. No calf tenderness noted. NEUROLOGIC: Cranial nerves II-XII intact. PSYCHIATRIC: Awake, alert, and oriented X 3. Appropriate affect. Intact judgement and insight. Limitations: no limitations Course Vital Signs 02/11/25 02/11/25 07:09 08:52 Temperature 99.0 F Pulse Rate 82 Pulse Rate [ 80 Apical] Respiratory 18 Rate Blood Pressure 114/77 O2 Sat by Pulse 97 Oximetry Chest Pain MDM - MDM Was pt. sent in by a medical professional or institution (PAT Hoff, PREVENTIVE MEDICINE OFFICER, urgent care, hospital, or care home...) When possible be specific @ -No Did you speak to anyone other than the patient for history (EMS, parent, family, police, friend...)? What history was obtained from this source @ -No Did you review nursing and triage notes (agree or disagree)? Why? @ -I reviewed and agree with nursing and triage notes Were old charts reviewed (outside hosp., previous admission, EMS record, old EKG, old radiological studies, urgent care reports/EKG's, care home records)? Report findings @ -No old charts were reviewed Differential Diagnosis? @ -Pneumonia, viral infection, pericarditis, costochondritis, PE EKG interpreted by me (3pts min.). @ -As above X-rays interpreted by me (1pt min.). Sinus rhythm with ventricular rate of 78 bpm, QTc interval 396 ms, no ST elevation or depression. @ -No acute cardiopulmonary process. CT interpreted by me (1pt min.). @ -None done U/S interpreted by me (1pt. min.). @ -None done What testing was considered but not performed or refused? (CT, X-rays, U/S, labs)? Why? @ -None What meds were considered but not given or refused? Why? @ -None Did you discuss the management of the patient with other professionals (professionals i.e. , PA, PREVENTIVE MEDICINE OFFICER, lab, RT, psych nurse, social work manager, electrical line mechanic, teacher, occupational health and safety officer, human services case manager)? Give summary @ -Discussed with attending physician Was smoking cessation discussed for >3mins.? @ -No Was critical care preformed (if so, how long)? @ -No Were there social determinants of health that impacted care today? How? (Homelessness, low income, unemployed, alcoholism, drug addiction, transportation, low edu. Level, literacy, decrease access to med. care, skilled nursing, rehab)? @ -No Was there de-escalation of care discussed even if they declined (Discuss DNR or withdrawal of care, Hospice)? DNR status @ -No What co-morbidities impacted this encounter? (DM, HTN, Smoking, COPD, CAD, Cancer, CVA, ARF, Chemo, Hep., AIDS, mental health diagnosis, sleep apnea, morbid obesity)? @ -None Was patient admitted / discharged? Hospital course, mention meds given and route, prescriptions, significant lab abnormalities, going to OR and other pertinent info. @ -49-year-old female with no past medical history presents to the ER with sharp stabbing chest pain that started yesterday. Patient's breathing comfortably. No tachypnea, normal oxygen saturation. Denies any oral contraception use, tobacco use or recent travel history, less likely to be pulmonary embolism. Will obtain chest x-ray, EKG, viral respiratory panel. EKG showed sinus rhythm with ventricular rate of 78 bpm, QTc 396 ms, no ST elevation or depression. Chest x-ray showed no acute cardiopulmonary process. Viral respiratory panel negative for COVID, RSV, flu. A one-time 15 mg IM Toradol given in the ED. Patient will be discharged home advised to take [id number] Prilosec for few days. Undiagnosed new problem with uncertain prognosis? @ -No Drug Therapy requiring intensive monitoring for toxicity (Heparin, Nitro, Insulin, Cardizem)? @ -No Were any procedures done? @ -No Diagnosis/symptom? @ -Viral upper respiratory infection Acute, or Chronic, or Acute on Chronic? @ -Acute Uncomplicated (without systemic symptoms) or Complicated (systemic symptoms)? @ -Uncomplicated Side effects of treatment? @ -No Exacerbation, Progression, or Severe Exacerbation? @ -No Poses a threat to life or bodily function? How? (Chest pain, [place], [place], pneumonia, PE, COPD, DKA, ARF, appy, cholecystitis, CVA, Diverticulitis, Homicidal, Suicidal, threat to staff... and all critical care pts) @ -No Disposition Clinical Impression: Viral upper respiratory infection Narrative: Patient will be discharged home advised to take Prilosec for a few days. Disposition: HOME SELF-CARE Condition: Stable Additional Instructions: Every disease is a spectrum and a small chance still exists that a serious condition could develop, for this reason, please monitor yourself closely for new, changing or worsening symptoms, new confusion, changes in behavior, severe headache, changes in vision, numbness, weakness, chest pain, fever, inability to tolerate/keep down fluids or your medications, inability to follow up with outpatient providers as instructed and should you experience these symptoms or should you have any further concerns for your wellbeing please return to the ED or call 911 immediately. PLEASE call your primary care physician as soon as possible to arrange / discuss plan for followup appointment. Appointment in the next 1-3 days is strongly encouraged if possible. PLEASE let us know here before you leave if there is anything further we can do to be of any assistance. Take care and feel Better! Is patient prescribed a controlled substance at d/c from ED?: No Referrals: Kashif Vaughn MD [Primary Care Provider] - 1-2 days Time of Disposition: 09:40
--- NOTE | 2025-02-11 08:25 | XR ---
EXAMINATION TYPE: XR chest 2V DATE OF EXAM: 02/11/2025 CLINICAL INDICATION: Female, 49 years old with history of pleuritic chest pain, TECHNIQUE: Frontal and lateral views of the chest are obtained. COMPARISON: Chest x-ray October 12, 2023 FINDINGS: There is no focal air space opacity, pleural effusion, or pneumothorax seen. The cardiac silhouette size is stable and within normal limits. The osseous structures are intact. IMPRESSION: No acute cardiopulmonary process. No significant change from most recent prior. [facility], , 02/11/2025 8:23 AM
[2025-02-11] MEDS: KETOROLAC 15 MG/ML 1 ML VIAL IM STA (08:50)
[2025-02-11 08:58] LABS: Influenza A Not Detected (Not Detectd); Influenza B Not Detected (Not Detectd); RSV Not Detected (Not Detectd)
[2025-02-11 09:58] VITALS: BP 116/79; PULSE 81; TEMP 98.3
== END 2025-02-11 09:58 | disposition home or self-care (01) ==
LOC: EC 07:05
DX: J06.9 Acute upper respiratory infection, unspecified (principal); Z91.010 Allergy to peanuts
CPT/HCPCS: 87636; 71046; 99285; 96372; J1885

== ENCOUNTER 2025-05-21 05:49 | Day surgery (SDC) | payer OTHER ==
[2025-05-19 14:00] VITALS: BMI 18.8
[2025-05-21] MEDS ORDERED: LACTATED RINGERS 1,000 ML IV SCH (05:56)
[2025-05-21] MEDS: IV FLUID CONTINUATION 1,000 ML IV ONE (06:13)
[2025-05-21 06:36] VITALS: TEMP 97.5
[2025-05-21] MEDS ORDERED: PROPOFOL 10 MG/ML 20 ML VIAL IV ONE (07:00)
--- NOTE | 2025-05-21 07:32 | P.PCN ---
Date of Procedure: 05/21/25 Procedure(s) Performed: BRIEF HISTORY: Patient is a 50-year-old pleasant white female scheduled for an elective colonoscopy as a part of evaluation of change in bowel habits for the last administration. PROCEDURE PERFORMED: Colonoscopy. PREOPERATIVE DIAGNOSIS: Change in bowel habits. IV sedation per Anesthesia. PROCEDURE: After informed consent was obtained, the patient, was brought into the endoscopy unit. IV sedation was administered by Anesthesia under continuous monitoring. Digital rectal examination was normal. Initially the Olympus CF-160 flexible video colonoscope was then inserted in the rectum, gradually advanced into the cecum with severe difficulty because of extremely redundant colon.. Careful examination was performed as the scope was gradually being withdrawn. Ileocecal valve and the appendiceal orifice were visualized and appeared normal. Prep was excellent. Mucosa of the cecum, ascending colon, transverse colon, descending colon, sigmoid colon, and rectum appeared normal. Retroflexion was performed in the rectum and no lesions were seen. The patient tolerated the pro cedure well. IMPRESSION: Normal-appearing colon from rectum to cecum with no evidence of colorectal neoplasia. RECOMMENDATIONS: Findings of this examination were discussed with the patient as well as her family. She was advised to be on high-fiber diet and fiber supplements on regular basis. Recommend repeat screening colonoscopy in 10 years.
[2025-05-21 07:51] VITALS: BP 99/60; PULSE 56; RESP 17
== END 2025-05-21 08:19 | disposition home or self-care (01) ==
LOC: ORWHC2ENDO 05:49
PROVIDERS: ATTEND Internal Medicine Gastroenterology
DX: R19.4 Change in bowel habit (principal); N80.00 Endometriosis of the uterus, unspecified; Z79.899 Other long term (current) drug therapy
CPT/HCPCS: 81025; 45378; J2704